=== PATIENT | female | born 1950 | race Caucasian/White ===

== ENCOUNTER 2019-04-29 07:17 | Day surgery (SDC) | payer MEDICARE, OTHER ==
[~2019-04-29] VITALS: Ht 152.4 cm; Wt 99.8 kg
[~2019-04-29 07:17] MED LIST: GLUCOSAMINE1000 MG PO; HYDROCHLOROTHIA25 MG PO; LOVASTATIN20 MG PO; PRINIVIL10 MG PO; ZYRTEC10 M3 PO
--- NOTE | 2019-04-29 09:30 | NUR ---
04/29/19 0930 Kailee Carrasco 0904 PT TO PACU AWAKE AND ALERT DENIES PAIN
--- NOTE | 2019-04-30 13:17 | OR ---
[facility] [address], [place] [address] Signed DATE OF OPERATION: 04/29/2019 SURGEON: Jony Lagunas MD PREOPERATIVE DIAGNOSIS: Colon screening. POSTOPERATIVE DIAGNOSES: 1. Sigmoid diverticulosis. 2. Polyp of cecum (excised). PROCEDURE: Total colonoscopy to cecum with cold snare polypectomy x1. ANESTHESIA: Intravenous sedation, fentanyl 100 mcg, Versed 4 mg. INDICATION: This 69-year-old morbidly obese white woman is a patient of AMENA Goss and lives in [place], [place]. She is admitted to undergo colonoscopy having last undergone colonoscopy in 2006. She has possible family history of colon cancer in an uncle. She is admitted at this time to undergo surveillance colonoscopy, understands the risks of bleeding, infection, and perforation. FINDINGS: The prep was good. Complete colonoscopy was undertaken to the cecum without question. There was a small adenomatous-appearing polyp of the cecum, which was excised with cold snare polypectomy technique without problem. Numerous diverticula both small and large were noted in the sigmoid colon. There were no other findings of concern. Notably, the patient did have high suspicion for sleep apnea syndrome, for which, further evaluation would be recommended. DESCRIPTION OF PROCEDURE: The patient was brought to the endoscopy suite and placed in lateral decubitus position. She was given intravenous sedation to the point of slurred speech and nystagmus with full cardiopulmonary monitoring. Digital rectal examination was normal. Her respiratory pattern and episodic cycling of her O2 saturations were highly suggestive of sleep apnea syndrome. Electronically Signed By: JONY LAGUNAS MD 04/30/19 1317 PATIENT NAME: DANIEL TRONCOSO OPERATIVE REPORT DATE OF : 50 REPORT #: [id number] PHYSICIAN: JONY LAGUNAS MD PCP: LILLIAM VAZQUEZ REPORT IS CONFIDENTIAL AND NOT TO BE RELEASED WITHOUT AUTHORIZATION [facility] [address], [place] [address] Signed An Olympus video colonoscope was passed in the rectum after normal rectal examination and examination noted numerous diverticula of the sigmoid and left colon. The scope was ultimately passed to the cecum without problem. The ileocecal valve and appendiceal orifice were normal. A small polyp was noted at the cecum. This was excised with cold snare polypectomy technique and the specimen passed for pathology. The scope was withdrawn from that point. Examination showed no other signs of polyps, only diverticular changes of the sigmoid and left colon. Retroflexed view of the rectum was normal. The scope was removed. The patient was taken to recovery room in good condition. CONCLUDING DIAGNOSES: 1. Polyp of colon. 2. Sigmoid diverticulosis. PLAN: 1. Recommend high-fiber diet. Recommend repeat colonoscopy in 3 years based on polyp found. 2. Recommend consideration for sleep apnea evaluation and treatment. MD KRISTINA Lou/MARIE /[id number] cc: LISET Goss Copies: LILLIAM VAZQUEZ ~ Electronically Signed By: JONY LAGUNAS MD 04/30/19 1317 PATIENT NAME: DANIEL TRONCOSO LOUIE OPERATIVE REPORT DATE OF : 50 REPORT #: [id number] PHYSICIAN: JONY LAGUNAS MD PCP: LILLIAM VAZQUEZ REPORT IS CONFIDENTIAL AND NOT TO BE RELEASED WITHOUT AUTHORIZATION
--- NOTE | 2019-05-02 17:42 | PATH ---
[facility] [address] [place], [place] [address] Signed SPECIMEN(S): A CECUM POLYP SPECIMEN SOURCE: A. CECUM POLYP CLINICAL HISTORY: Screening. Postop: Polyp, diverticulosis. MICROSCOPIC DESCRIPTION: Histologic sections of all submitted blocks are examined by light microscopy. These findings, together with the gross examination, support the pathologic diagnosis. FINAL PATHOLOGIC DIAGNOSIS: Colon, cecum, polyp, polypectomy: - Fragments of tubular adenoma. - Negative for high-grade dysplasia or malignancy. NAL:cml:C2NR GROSS DESCRIPTION: The specimen, labeled "SE, cecum polyp," is received in formalin and consists of two pink-villagomez soft tissue fragment(s) that measure 0.2-0.3 cm in greatest dimension. The specimen is entirely submitted in cassette (A1). JS (under the direct supervision of a pathologist) The Gross Description was prepared using a voice recognition system. The report was reviewed for accuracy; however, sound-alike word errors, addition and/or deletions may occur. If there is any question about this report, please contact Client Services. PERFORMING LABORATORY: The technical component was performed by [facility], [address] [place] [id number] (Poultry Feed Supervisor: Karma Mello MD; CLIA# [id number]). [facility] [address] [address] (Poultry Feed Supervisor: Shola Carrasco MD; CLIA# [id number]). Diagnostician: Kathy Oglesby MD Pathologist Electronically Signed 05/02/2019 PATIENT NAME: DANIEL TRONCOSO PATHOLOGY DATE OF : 50 REPORT #: [id number] PHYSICIAN: [facility] PCP: LILLIAM VAZQUEZ REPORT IS CONFIDENTIAL AND NOT TO BE RELEASED WITHOUT AUTHORIZATION [address] [address] Signed Copies: ~ PATIENT NAME: DANIEL TRONCOSO PATHOLOGY DATE OF : 50 REPORT #: [id number] PHYSICIAN: [facility] PCP: LILLIAM VAZQUEZ REPORT IS CONFIDENTIAL AND NOT TO BE RELEASED WITHOUT AUTHORIZATION
== END 2019-04-29 09:32 | disposition home or self-care (01) ==
LOC: DS 07:17 → OPS 07:17 → DS 08:30 → OPS 09:32
PROVIDERS: Surgery
PROC: 0DBH8ZZ Excision of Cecum, Via Natural or Artificial Opening Endoscopic (ICD-10-PCS; principal; 2019-04-29 08:30)
DX: Z12.11 Encounter for screening for malignant neoplasm of colon (principal); D12.0 Benign neoplasm of cecum; K57.30 Diverticulosis of large intestine without perforation or abscess without bleeding; E66.01 Morbid (severe) obesity due to excess calories; I10 Essential (primary) hypertension; Z85.038 Personal history of other malignant neoplasm of large intestine; Z91.040 Latex allergy status; Z68.41 Body mass index [BMI] 40.0-44.9, adult
CPT/HCPCS: 99153; G0500; J2250; J3010; J7121

== ENCOUNTER 2022-10-30 11:28 | Day surgery (SDC) | payer MEDICARE, OTHER ==
[~2022-10-30] VITALS: Ht 152.4 cm; Wt 99.0 kg
[~2022-10-30 11:28] MED LIST changes: +ASPIRIN81 MG PO; +BIOTIN1 MG PO; +CO Q-1010 MG PO; +FISH OIL 1,0001 EAC6 PO
[2022-10-30 11:53] VITALS: BP 130/60
--- NOTE | 2022-10-30 13:22 | NUR ---
10/30/22 1322 Radha Thibodeaux 1317 PATIENT AWAKE ON ARRIVAL TO PACU. RESP EVEN AND UNLABORED, NC AT 3 LITERS WITH CO2 MONITOR. DENIES PAIN OR NAUSEA. PASSING GAS.
[2022-10-30 13:41] VITALS: BP 126/68
--- NOTE | 2022-10-30 15:07 | OR ---
[facility] [address] [place], [place] [address] Signed DATE OF OPERATION: 10/30/2022 SURGEON: Jony Lagunas MD PREOPERATIVE DIAGNOSIS: History of adenomatous polyp of cecum 2019. POSTOPERATIVE DIAGNOSES: Left-sided and sigmoid diverticulosis. No evidence of polyps. PROCEDURE: Total colonoscopy to the cecum. ANESTHESIA: Intravenous sedation; fentanyl 150 mcg and Versed 5 mg. INDICATION: This 72-year-old white woman is a patient Dr. Hua of [place], [place] and known to me from the past having undergone colonoscopy in 2019, at which time she was found to have a cecal polyp that was adenomatous. She had no symptoms now of bleeding, diarrhea, or constipation. She is admitted for surveillance colonoscopy. She understands the risk of bleeding, infection, and perforation. FINDINGS: The prep was good. Complete colonoscopy was undertaken of the cecum. Full intubation of cecum was assured and there was no evidence of recurrent or new polyp there. Remaining colon showed no evidence of polyps, only diverticular changes of the sigmoid and left colon. DESCRIPTION OF PROCEDURE: The patient was brought to the endoscopy suite and placed in the lateral decubitus position, given intravenous sedation to the point of slurred speech and nystagmus. Digital rectal examination was normal. Full cardiopulmonary monitoring was maintained. An Olympus video colonoscope was passed in the rectum and manipulated throughout the colon noting numerous diverticula of the sigmoid and left colon. The scope was ultimately advanced to the right colon. Passage into the cecum was somewhat delayed, but ultimately was accomplished with abdominal wall stabilization. Good irrigation was undertaken in the area to provide for good evaluation. The scope was then withdrawn and examination undertaken showing no evidence of abnormality, only numerous diverticula of the left colon and sigmoid. The scope was withdrawn fully and removed and the patient Electronically Signed By: JONY LAGUNAS MD 10/30/22 1507 PATIENT NAME: DANIEL TRONCOSO OPERATIVE REPORT DATE OF : 50 REPORT #: [id number] PHYSICIAN: JONY LAGUNAS MD PCP: DANISHA HUA MD REPORT IS CONFIDENTIAL AND NOT TO BE RELEASED WITHOUT AUTHORIZATION [facility] [address] [place], [place] [address] Signed was taken to the recovery room in good condition. CONCLUDING DIAGNOSIS: Diverticulosis. No evidence of recurrent or new polyp. PLAN: Recommend repeat colonoscopy in 10 years, sooner if clinically indicated. She will return to the ongoing care of Dr. Hua in [place], [place]. MD KRISTINA Lou/MODL /[id number] cc: Dr. Hua in [place], [place]. Copies: ~ Electronically Signed By: JONY LAGUNAS MD 10/30/22 1507 PATIENT NAME: DANIEL TRONCOSO OPERATIVE REPORT DATE OF : 50 REPORT #: [id number] PHYSICIAN: JONY LAGUNAS MD PCP: DANISHA HUA MD REPORT IS CONFIDENTIAL AND NOT TO BE RELEASED WITHOUT AUTHORIZATION
== END 2022-10-30 13:50 | disposition home or self-care (01) ==
LOC: OPS 11:28 → DS 11:40 → OPS 13:00
PROVIDERS: ATTEND Surgery
DX: Z12.11 Encounter for screening for malignant neoplasm of colon (principal); K57.30 Diverticulosis of large intestine without perforation or abscess without bleeding; Z86.010 Personal history of colon polyps; I10 Essential (primary) hypertension; E11.9 Type 2 diabetes mellitus without complications; E66.01 Morbid (severe) obesity due to excess calories; Z68.41 Body mass index [BMI] 40.0-44.9, adult; Z98.1 Arthrodesis status; Z98.890 Other specified postprocedural states; Z79.82 Long term (current) use of aspirin; Z79.899 Other long term (current) drug therapy
CPT/HCPCS: 99153; G0500; J2250; J3010; J7121